=== PATIENT | female | born 1955 | race Caucasian/White ===

== ENCOUNTER → 2020-08-19 | Outpatient (CLI) | payer OTHER ==
[~2020-08-19] MED LIST: AMLO-187 PO; DULA1.5P SQ; GLIP10TA13 PO; INSU100V13 SQ; INSU100V2 SQ; LOSA1TAB25 PO; METF500T16 PO; PRAV40TA PO
== END ==
LOC: LAB 08:22
PROVIDERS: ATTEND Internal Medicine Gastroenterology
DX: Z01.812 Encounter for preprocedural laboratory examination (principal); R19.5 Other fecal abnormalities; Z20.828 Contact with and (suspected) exposure to other viral communicable diseases
CPT/HCPCS: U0003

== ENCOUNTER → 2020-08-21 | Day surgery (SDC) | payer OTHER ==
[~2020-08-21] MED LIST changes: +IV RINGERS,LACTATED 1000ML 1,000 ML IV SCH; +LIDOCAINE 2% PF 5 ML VIAL. ONE; +PROPOFOL 10 MG/ML (20ML) VIAL. IV ONE
--- NOTE | 2020-08-21 09:07 | HP ---
ADMIT DATE: 08/21/2020 REFERRING PHYSICIAN: Patricia Smith MD HISTORY OF PRESENT ILLNESS: A 64-year-old female whose past medical history is significant for hypertension, diabetes, osteoarthrosis, hyperlipidemia, is seen with heme-positive stools. She has had daily bowel movements with occasional diarrhea. Weight and appetite have been stable. FAMILY HISTORY: Positive for colon cancer with an uncle, but there has been no visible bleeding. She is otherwise without additional complaints. PAST MEDICAL HISTORY: Hypertension, diabetes, hyperlipidemia. FAMILY HISTORY: Significant for colon cancer with an uncle, MIs with multiple family members, diabetes, and liver disease. PAST SURGICAL HISTORY: Significant for appendectomy and tonsillectomy. REVIEW OF SYSTEMS: Per records. PHYSICAL EXAMINATION: GENERAL: Reveals a well-nourished, well-developed female, who is alert, cooperative, in no acute distress. VITAL SIGNS: Pulse is 75, respiratory rate is 18. LUNGS: Clear. CARDIOVASCULAR: Reveals an S1, S2 without S3, S4 or appreciable murmur. ABDOMEN: With a soft abdomen, normal bowel sounds, without appreciable hepatosplenomegaly. EXTREMITIES: Reveals no cyanosis, clubbing or edema. IMPRESSION: Heme-positive stool, etiology is to be determined. Differential includes colonic polyps, malignancy, arteriovenous malformations, inflammatory bowel disease. Therefore, recommend colonoscopy. Risks and benefits of the procedure, including risk of hemorrhage and perforation during the operation were discussed. The patient is willing to proceed at this time. BONNIE DUTTA MD DR: LIO/stone JOB#: [id number] / [id number]
[2020-08-21 09:42] VITALS: BP 107/70
== END | disposition home or self-care (01) ==
LOC: ENDOS 08:01
PROVIDERS: ATTEND Internal Medicine Gastroenterology
DX: R19.5 Other fecal abnormalities (principal); K64.1 Second degree hemorrhoids; E78.00 Pure hypercholesterolemia, unspecified; I12.9 Hypertensive chronic kidney disease with stage 1 through stage 4 chronic kidney disease, or unspecified chronic kidney disease; E11.22 Type 2 diabetes mellitus with diabetic chronic kidney disease; N18.9 Chronic kidney disease, unspecified; M19.90 Unspecified osteoarthritis, unspecified site; Z87.440 Personal history of urinary (tract) infections; Z79.899 Other long term (current) drug therapy; Z79.4 Long term (current) use of insulin; Z98.890 Other specified postprocedural states; Z80.0 Family history of malignant neoplasm of digestive organs
CPT/HCPCS: 45378; J2704